=== PATIENT | male | born 1965 | race Caucasian/White ===

== ENCOUNTER 2018-02-18 08:12 | Observation (INO) | payer OTHER ==
--- NOTE | 2018-02-18 09:23 | ER ---
Nurse's Notes [facility] Name: Junito Lozano Age: 52 yrs Sex: Male : 1965 Arrival Date: 02/18/2018 Time: 08:15 Bed 15 Private MD: Unknown, Unknown Diagnosis: Abscess of anal and rectal regions;Fever, unspecified Presentation: 02/18 08:25 Presenting complaint: Patient states: pain to L buttock/anus since Sunday, now its red, ch hot and swollen, the pain is increasing. a fever every evening since Sunday, t max 101. could not sleep last night due to pain. Transition of care: patient was not received from another setting of care. Onset of symptoms was February 15, 2018. Risk Assessment: Do you want to hurt yourself or someone else? Patient reports no desire to harm self or others. Initial Sepsis Screen: Does the patient meet any 2 criteria? No. Patient's initial sepsis screen is negative. Does the patient have a suspected source of infection? No. Patient's initial sepsis screen is negative. Care prior to arrival: None. 08:25 Method Of Arrival: Ambulatory 08:25 Acuity: CASSI 3 ch Triage Assessment: 08:27 General: Appears in no apparent distress. uncomfortable, Behavior is calm, cooperative, ch appropriate for age. Pain: Complains of pain in buttocks and anus Pain currently is 9 out of 10 on a pain scale. Neuro: No deficits noted. Respiratory: No deficits noted. : No signs and/or symptoms were reported regarding the genitourinary system. Historical: - Allergies: 08:27 No Known Allergies; ch - Home Meds: 08:27 amlodipine-beslayte [Active]; aspirin 81 mg Oral chew 1 tab once daily [Active]; ch - PMHx: 08: Hypertension; - PSHx: 08:27 Gastric Bypass; - Immunization history:: Adult Immunizations up to date. - Social history:: Smoking status: Patient/guardian denies using tobacco, Patient uses alcohol, on a daily basis. admits to "couple of beers" a day. Patient/guardian denies using street drugs. - Ebola Screening: : Patient negative for fever greater than or equal to 101.5 degrees Fahrenheit, and additional compatible Ebola Virus Disease symptoms Patient denies exposure to infectious person Patient denies travel to an Ebola-affected area in the 21 days before illness onset No symptoms or risks identified at this time. Screenin:29 Abuse screen: Denies threats or abuse. Denies injuries from another. Nutritional screening: No deficits noted. Tuberculosis screening: No symptoms or risk factors identified. Fall Risk None identified. Assessment: 08:29 Reassessment: Patient appears in no apparent distress at this time. No changes from previously documented assessment. 08:56 General: Appears in no apparent distress. uncomfortable. Pain: Complains of pain in buttocks and anus. Derm: Skin is pink, warm \\T\\ dry. Abscess located on gluteal cleft is half dollar sized, is hot to touch, is red, is raised, pt has redness on the L side of the gluteal cleft. pt has large lump, firm, very tender next to L side of anus, tenderness extends to the middle of buttock. 09:48 Reassessment: Patient completed PO contrast. Notified CT via telephone. ae1 Vital Signs: 08:27 BP 159 / 99; Pulse 90; Resp 15; Temp 99(O); Pulse Ox 99% on R/A; Weight 129.73 kg; Height 6 ft. 1 in. (185.42 cm); Pain 9/10; 11:35 BP 132 / 88; Pulse 65; Resp 18; Temp 97.3; Pulse Ox 99% on R/A; Pain 2/10; ch 08:27 Body Mass Index 37.73 (129.73 kg, 185.42 cm) ED Course: 08:15 Patient arrived in ED. mr 08:15 Unknown, Unknown is Private Physician. mr 08:17 Jina Ghosh, RN is Primary Nurse. 08:26 Triage completed. ch 08:27 Arm band placed on right wrist. Patient placed in an exam room, on a stretcher, on pulse oximetry. 08:29 No apparent distress. Resting quietly. ch 08:29 Patient has correct armband on for positive identification. Placed in gown. Bed in low position. Call light in reach. Side rails up X 1. Adult w/ patient. Pulse ox on. NIBP on. Warm blanket given. 08:40 Tito Martins MD is Attending Physician. [facility] 09:22 Qamar Garcia MD is Hospitalizing Provider. nicolette 09:35 Missed attempt(s): 20 gauge in right antecubital area. Bleeding controlled, band aid ag applied, catheter tip intact. 09:35 Inserted saline lock: 20 gauge in left antecubital area, using aseptic technique. Blood ag collected. 09:37 X-ray completed. Portable x-ray completed in exam room. Patient tolerated procedure kp1 well. 09:37 Basic Metabolic Panel Sent. ag 09:37 BNP Sent. ag 09:37 CBC with Diff Sent. ag 09:37 Ckmb Sent. ag 09:37 CPK Sent. ag 09:37 LFT's Sent. ag 09:37 Troponin (emerg Dept Use Only) Sent. ag 09:38 Ptt, Activated Sent. ag 09:38 PT-INR Sent. ag 09:38 Magnesium Sent. ag 09:39 XRAY Chest (1 view) In Process Unspecified. EDMS 09:50 EKG done, by technical sales representative. reviewed by Tito Martins MD. dt2 11:00 No provider procedures requiring assistance completed. Patient admitted, IV remains in ch place. Administered Medications: 10:10 Drug: NS 0.9% 1000 ml Route: IV; Rate: 1 bolus; Site: left antecubital; ch 11:34 Follow up: IV Status: Completed infusion; IV Intake: 1000ml ch 10:10 Drug: Tylenol 1000 mg Route: PO; ch 11:33 Follow up: Response: No adverse reaction; Marked relief of symptoms ch 10:10 Drug: levofloxacin 750 mg Volume: 150 ml; Route: IVPB; Infused Over: 90 mins; Site: left antecubital; 11:33 Follow up: IV Status: Completed infusion; IV Intake: 150ml ch 10:38 Drug: Flagyl 500 mg Volume: 100 ml; Route: IVPB; Rate: 200 ml/hr; Infused Over: 30 ch mins; Site: left antecubital; 11:33 Follow up: IV Status: Completed infusion; IV Intake: 100ml ch 10:41 Drug: fentaNYL (PF) 50 mcg Route: IVP; Site: left antecubital; ch 11:34 Follow up: Response: No adverse reaction; Pain is decreased ch 10:42 Drug: NS 0.9% 1000 ml Route: IV; Rate: 125 ml/hr; Site: left antecubital; ch 11:34 Follow up: IV Status: Infusion continued upon admission ch 13:39 Drug: fentaNYL (PF) 25 mcg Route: IVP; Site: left antecubital; 19:41 Follow up: Response: No adverse reaction; Marked relief of symptoms ch 14:14 Not Given (Duplicate Order): fentaNYL (PF) 25 mcg IVP once dm5 Intake: 11:33 IV: 100ml; Total: 100ml. ch 11:33 IV: 150ml; Total: 250ml. ch 11:34 IV: 1000ml; Total: 1250ml. Outcome: 09:23 Decision to Hospitalize by Provider. [facility] 14:00 Admitted to OR accompanied by nurse, via stretcher, with chart, Other report given at bedside 14:00 Condition: stable 14:00 Instructed on the need for admit. 14:15 Patient left the ED. dm5 Signatures: Dispatcher [employer] EDMS Jina Ghosh, HEATHER ROMERO Maile Robertson RN RN dm5 Tito Martins MD MD cha Rivera, Maria mr Gallardo, Juan Ramon Arango RN RN juwan1 Darlin Warren kp1 Jenise Moseley2
--- NOTE | 2018-02-18 09:23 | EDPHYS ---
Physician Documentation [facility] Name: Junito Lozano Age: 52 yrs Sex: Male : 1965 Arrival Date: 02/18/2018 Time: 08:15 Bed 15 Private MD: Unknown, Unknown ED Physician Tito Martins HPI: 02/18 09:17 This 52 yrs old Male presents to ER via Ambulatory with complaints of nicolette Hemorrhoids, Fever. 09:17 The patient reports fever, that was measured at 101 degrees Fahrenheit. Onset: The nicolette symptoms/episode began/occurred 2 day(s) ago. Modifying factors: there are no obvious modifying factors. Associated signs and symptoms: Pertinent positives: chills, nausea. Severity of symptoms: At their worst the symptoms were moderate in the emergency department the symptoms are unchanged. Historical: - Allergies: 08:27 No Known Allergies; ch - Home Meds: 08:27 amlodipine-beslayte [Active]; aspirin 81 mg Oral chew 1 tab once daily [Active]; ch - PMHx: 08: Hypertension; ch - PSHx: 08:27 Gastric Bypass; ch - Immunization history:: Adult Immunizations up to date. - Social history:: Smoking status: Patient/guardian denies using tobacco, Patient uses alcohol, on a daily basis. admits to "couple of beers" a day. Patient/guardian denies using street drugs. - Ebola Screening: : Patient negative for fever greater than or equal to 101.5 degrees Fahrenheit, and additional compatible Ebola Virus Disease symptoms Patient denies exposure to infectious person Patient denies travel to an Ebola-affected area in the 21 days before illness onset No symptoms or risks identified at this time. ROS: 09:19 Constitutional: Negative for fever, chills, and weight loss, Eyes: Negative for injury, nicolette pain, redness, and discharge, ENT: Negative for injury, pain, and discharge, Neck: Negative for injury, pain, and swelling, Cardiovascular: Negative for chest pain, palpitations, and edema, Respiratory: Negative for shortness of breath, cough, wheezing, and pleuritic chest pain, Back: Negative for injury and pain, : Negative for injury, bleeding, discharge, and swelling, MS/Extremity: Negative for injury and deformity, Skin: Negative for injury, rash, and discoloration, Neuro: Negative for headache, weakness, numbness, tingling, and seizure, Psych: Negative for depression, anxiety, suicide ideation, homicidal ideation, and hallucinations, Allergy/Immunology: Negative for hives, rash, and allergies, Endocrine: Negative for neck swelling, polydipsia, polyuria, polyphagia, and marked weight changes, Hematologic/Lymphatic: Negative for swollen nodes, abnormal bleeding, and unusual bruising. 09:19 Abdomen/GI: Positive for abdominal pain, rectal pain, of the anus. Exam: 09:19 Head/Face: Normocephalic, atraumatic. Eyes: Pupils equal round and reactive to light, nicolette extra-ocular motions intact. Lids and lashes normal. Conjunctiva and sclera are non-icteric and not injected. Cornea within normal limits. Periorbital areas with no swelling, redness, or edema. ENT: Nares patent. No nasal discharge, no septal abnormalities noted. Tympanic membranes are normal and external auditory canals are clear. Oropharynx with no redness, swelling, or masses, exudates, or evidence of obstruction, uvula midline. Mucous membranes moist. Neck: Trachea midline, no thyromegaly or masses palpated, and no cervical lymphadenopathy. Supple, full range of motion without nuchal rigidity, or vertebral point tenderness. No Meningismus. Chest/axilla: Normal chest wall appearance and motion. Nontender with no deformity. No lesions are appreciated. Cardiovascular: Regular rate and rhythm with a normal S1 and S2. No gallops, murmurs, or rubs. Normal PMI, no JVD. No pulse deficits. Respiratory: Lungs have equal breath sounds bilaterally, clear to auscultation and percussion. No rales, rhonchi or wheezes noted. No increased work of breathing, no retractions or nasal flaring. Back: No spinal tenderness. No costovertebral tenderness. Full range of motion. Male : Normal genitalia with no discharge or lesions. Skin: Warm, dry with normal turgor. Normal color with no rashes, no lesions, and no evidence of cellulitis. MS/ Extremity: Pulses equal, no cyanosis. Neurovascular intact. Full, normal range of motion. Neuro: Awake and alert, GCS 15, oriented to person, place, time, and situation. Cranial nerves II-XII grossly intact. Motor strength 5/5 in all extremities. Sensory grossly intact. Cerebellar exam normal. Normal gait. Psych: Awake, alert, with orientation to person, place and time. Behavior, mood, and affect are within normal limits. 09:19 Abdomen/GI: Inspection: abdomen appears normal, Bowel sounds: normal, Palpation: abdomen is soft and non-tender, Rectal exam: swelling, that is moderate, tenderness, that is moderate. Vital Signs: 08:27 BP 159 / 99; Pulse 90; Resp 15; Temp 99(O); Pulse Ox 99% on R/A; Weight 129.73 kg; ch Height 6 ft. 1 in. (185.42 cm); Pain 9/10; 11:35 BP 132 / 88; Pulse 65; Resp 18; Temp 97.3; Pulse Ox 99% on R/A; Pain 2/10; ch 08:27 Body Mass Index 37.73 (129.73 kg, 185.42 cm) ch MDM: 08:40 Patient medically screened. [facility] 09:22 Data reviewed: vital signs, nurses notes, lab test result(s), EKG, radiologic studies, [facility] CT scan, plain films. 02/18 09:16 Order name: Basic Metabolic Panel [facility] 02/18 09:16 Order name: BNP [facility] 02/18 09:16 Order name: CBC with Diff; Complete Time: 10:31 [facility] 02/18 09:16 Order name: Ckmb [facility] 02/18 09:16 Order name: CPK [facility] 02/18 09:16 Order name: LFT's [facility] 02/18 09:16 Order name: Magnesium [facility] 02/18 09:16 Order name: PT-INR; Complete Time: 10:31 [facility] 02/18 09:16 Order name: Ptt, Activated; Complete Time: 10:31 [facility] 02/18 09:16 Order name: Troponin (emerg Dept Use Only); Complete Time: 10:31 [facility] 02/18 09:16 Order name: Lipase [facility] 02/18 09:45 Order name: Basic Metabolic Panel [facility] 02/18 09:45 Order name: Basic Metabolic Panel [facility] 02/18 09:45 Order name: CBC with Automated Diff [facility] 02/18 09:16 Order name: XRAY Chest (1 view); Complete Time: 10:31 [facility] 02/18 09:16 Order name: CT Abd/Pelvis - W/Contrast [facility] 02/18 09:45 Order name: CBC with Automated Diff EDMS 02/18 09:45 Order name: Lipase [facility] 02/18 09:45 Order name: Lipase ED[facility] 02/18 09:45 Order name: Liver (Hepatic) Function ED[facility] 02/18 09:45 Order name: Liver (Hepatic) Function EDMS 02/18 12:26 Order name: CT EDMS 02/18 09:16 Order name: EKG; Complete Time: 09:17 [facility] 02/18 09:16 Order name: Cardiac monitoring; Complete Time: 09:37 [facility] 02/18 09:16 Order name: EKG - Nurse/Tech; Complete Time: 09:44 [facility] 02/18 09:16 Order name: IV Saline Lock; Complete Time: 09:36 [facility] 02/18 09:16 Order name: Labs collected and sent; Complete Time: 09:36 [facility] 02/18 09:16 Order name: O2 Per Protocol; Complete Time: 09:36 [facility] 02/18 09:16 Order name: O2 Sat Monitoring; Complete Time: 09:36 [facility] 02/18 09:16 Order name: NPO; Complete Time: 09:44 [facility] 02/18 09:45 Order name: NPO; Complete Time: 11:34 EDMS Administered Medications: 10:10 Drug: NS 0.9% 1000 ml Route: IV; Rate: 1 bolus; Site: left antecubital; ch 11:34 Follow up: IV Status: Completed infusion; IV Intake: 1000ml ch 10:10 Drug: Tylenol 1000 mg Route: PO; ch 11:33 Follow up: Response: No adverse reaction; Marked relief of symptoms ch 10:10 Drug: levofloxacin 750 mg Volume: 150 ml; Route: IVPB; Infused Over: 90 mins; Site: ch left antecubital; 11:33 Follow up: IV Status: Completed infusion; IV Intake: 150ml ch 10:38 Drug: Flagyl 500 mg Volume: 100 ml; Route: IVPB; Rate: 200 ml/hr; Infused Over: 30 ch mins; Site: left antecubital; 11:33 Follow up: IV Status: Completed infusion; IV Intake: 100ml ch 10:41 Drug: fentaNYL (PF) 50 mcg Route: IVP; Site: left antecubital; ch 11:34 Follow up: Response: No adverse reaction; Pain is decreased ch 10:42 Drug: NS 0.9% 1000 ml Route: IV; Rate: 125 ml/hr; Site: left antecubital; ch 11:34 Follow up: IV Status: Infusion continued upon admission ch 13:39 Drug: fentaNYL (PF) 25 mcg Route: IVP; Site: left antecubital; ch 19:41 Follow up: Response: No adverse reaction; Marked relief of symptoms ch 14:14 Not Given (Duplicate Order): fentaNYL (PF) 25 mcg IVP once dm5 Disposition: 02/18/18 09:23 Hospitalization ordered by Qamar Garcia for Observation. Preliminary diagnosis are Abscess of anal and rectal regions, Fever, unspecified. - Bed requested for Telemetry/MedSurg (observation). - Status is Observation. dm5 - Condition is Stable. - Problem is new. - Symptoms are unchanged. UTI on Admission? No Signatures: Dispatcher [employer] EDMS Emely Gatica Christina, HEATHER ROMERO Maile Robertson RN RN Tito Coker MD MD cha Corrections: (The following items were deleted from the chart) 11:16 09:23 Hospitalization Ordered by Qamar Garcia MD for Observation. Preliminary bd diagnosis is Abscess of anal and rectal regions; Fever, unspecified. Bed requested for Telemetry/MedSurg (observation). Status is Observation. Condition is Stable. Problem is new. Symptoms are unchanged. UTI on Admission? No. nicolette 14:15 11:16 02/18/2018 09:23 Hospitalization Ordered by Qamar Garcia MD for Observation. dm5 Preliminary diagnosis is Abscess of anal and rectal regions; Fever, unspecified. Bed requested for Telemetry/MedSurg (observation). Status is Observation. Condition is Stable. Problem is new. Symptoms are unchanged. UTI on Admission? No. bd
[2018-02-18] MEDS ORDERED: ACETAMINOPHEN 500 MG TAB PO PRN (09:42)
[2018-02-18] MEDS ORDERED: MORPHINE 4 MG/ML SYR IV PRN ×2 (09:42→15:57)
[2018-02-18] MEDS ORDERED: ONDANSETRON 4 MG/2 ML VIAL IV PRN ×2 (09:42→15:43)
--- NOTE | 2018-02-18 09:48 | EKG ---
Test Date: 2018-02-18 Test Time: 09:44:02 Dressmaker Or Tailor: NATHAN MEASUREMENT RESULTS: Intervals: Rate: 85 MI: 188 QRSD: 94 QT: 350 QTc: 416 Dowell: P: 29 MI: 188 QRS: 28 T: 30 INTERPRETIVE STATEMENTS: Normal sinus rhythm Normal ECG Compared to ECG 07/29/2007 08:43:32 No significant changes Electronically Signed On 02-18-18 09:47:17 CDT by Renard Cali
[2018-02-18] MEDS ORDERED: FENTANYL CITR 100 MCG/2 ML ONE ×4 (09:50→14:50)
[2018-02-18] MEDS ORDERED: ONDANSETRON 4 MG/2 ML VIAL ONE (09:51)
[2018-02-18] MEDS ORDERED: ACETAMINOPHEN 500 MG TAB ONE (09:51)
[2018-02-18] MEDS ORDERED: NA CHLORIDE 0.9% 2,000 ML ONE (09:51)
[2018-02-18] MEDS ORDERED: Levofloxacin 750mg IV 750 MG/150 ML BAG IV ONE (09:51)
[2018-02-18] MEDS ORDERED: METRONIDAZOLE 500mg IVPB 500 MG/100 ML BAG IV ONE (09:51)
[2018-02-18] MEDS ORDERED: Levofloxacin 750mg IV 750 MG/150 ML BAG IV SCH (10:00)
[2018-02-18] MEDS: NA CHLORIDE 0.9% 1,000 ML IV SCH ×2 (10:00→17:02)
[2018-02-18 10:01] LABS: Absolute Lymphocytes (CBC) 0.6 K/uL (0.7-4.9); Absolute Monocytes 1.2 K/uL (0.1-1.3); Absolute Neutrophil 6.7 K/uL (1.8-8.0); Basophils % 0.4 % (0-1.3); Eosinophils % 0.5 % (0-4.4); Hematocrit 40.4 % (39.6-49.0); MCH 31.8 pg (27.0-35.0); MCV 91.9 fL (80-100); Monocytes % 13.6 % (3.3-12.3)
--- NOTE | 2018-02-18 10:05 | RAD REPORT ---
EXAM DESCRIPTION: RAD - Chest Single View - 02/18/2018 9:44 am CLINICAL HISTORY: Cough, chest discomfort, preop chest film COMPARISON: None. TECHNIQUE: AP portable chest image was obtained 0936 hours . FINDINGS: Lungs are clear. Heart and vasculature are normal. No measurable pleural effusion and no p neumothorax. No gross bony abnormality seen. No acute aortic findings suspected. IMPRESSION: No acute cardiopulmonary process.
[2018-02-18 10:10] LABS: Protime INR 1.15
[2018-02-18 10:23] LABS: Bicarbonate 28 mEq/L (21-31); Glucose Level 110 mg/dL (65-120); Lipase 25 U/L (22-51); Potassium 3.6 mEq/L (3.6-5.0); Sodium Level 139 mEq/L (135-145)
[2018-02-18 10:29] LABS: ALT/SGPT 24 IU/L (10-60); AST/SGOT 19 IU/L (10-42); Albumin 3.5 g/dL (3.2-5.5); Alkaline Phosphatase 79 IU/L (42-121); BUN Blood Urea Nitrogen 11 mg/dL (6-20); Bilirubin Direct 0.2 mg/dL (0-0.2); Bilirubin Total 0.8 mg/dL (0.3-1.2); Creatine Phosphokinase 141 IU/L (22-269); Magnesium 2.2 mg/dL (1.8-2.5)
[2018-02-18 10:31] LABS: CKMB Creatine Kinase MB 6.5 ng/ml (0.3-4.0)
[2018-02-18] MEDS ORDERED: METRONIDAZOLE 500mg IVPB 500 MG/100 ML BAG IV SCH (12:00)
--- NOTE | 2018-02-18 12:25 | RAD REPORT ---
EXAM DESCRIPTION: CT - Abdomen Pelvis W Contrast - 02/18/2018 11:59 am CLINICAL HISTORY: Pelvic pain, left buttocks and perianal pain COMPARISON: None. TECHNIQUE: Biphasic, helical CT imaging of the abdomen and pelvis was performed following 100 ml non -ionic IV contrast. Oral contrast was given. All CT scans are performed using dose optimization technique as appropriate and may include automated exposure control or mA/KV adjustment according to patient size. FINDINGS: No suspicious findings in the lung bases. The liver, spleen, and pancreas show no suspicious findings. Gallbladder and biliary tree are also wi thout suspicious finding. Symmetric renal function is seen with no hydronephrosis or suspicious renal mass. No pyelonephritis o r acute renal parenchymal process. No urinary bladder abnormality. No dilated bowel loops or bowel wall thickening. No intraperitoneal free air, free fluid or pneumato sis. Small bilateral fat filled inguinal hernias are present. No hernia, mass or bulky lymphadenopat hy. No adrenal abnormality. Postsurgical changes are noted the stomach. No acute gastric finding. Small bowel shows no suspicious finding. From cecum through distal rectum no acute finding is seen. A 4 centimeter x 3 centimeter perirectal abscess is present posterior and posterolateral location. IMPRESSION: Approximately 4 x 3 centimeter posterior and left posterior perirectal/ perianal abscess .
[2018-02-18] MEDS ORDERED: BUPIVACAINE 0.5% Inj,MDV 50 mL VIAL ONE (13:53)
[2018-02-18] MEDS ORDERED: PROPOFOL 200 MG/20 ML VIAL IV ONE (14:36)
[2018-02-18] MEDS ORDERED: Morphine 2 MG/2 ML SYR IV PRN (14:38)
--- NOTE | 2018-02-18 14:39 | P.HP ---
Date of Service: 02/18/18 PC: This 52-year-old male presents to the emergency room with perirectal pain for diagnosis and treatment. HPC: Patient is noticed pain and discomfort on the left side of his buttocks just lateral to the anus this last . Has noticed increasing pain and pressure in this area. Got to the point where he could no longer stand it today and came in for treatment. PMH: Hypertension PSHx: Gastric bypass SOC: No known allergy (medications were reviewed) SYS REVIEW: No cough, wheeze, shortness of breath. No chest pain or palpitations. Had a normal colonoscopy done 6 months to a year ago. Denies any urinary complaint O/E awake alert on come HEENT: Not jaundice Chest: Chest movement equal bile out ABD: Soft Rectal: Patient has pain and tenderness on the left side of the buttock just at the area of the anus LOCO: Intact DATA: The white cell count IMPRESSION: Perirectal abscess PLAN: I will take him to the operating room for a incision, drainage, sharp debridement of this perirectal abscess. The risks of this procedure have been discussed. The possibility of bleeding, infection, recurrence were outlined. He understands and wants to proceed.
[2018-02-18] MEDS ORDERED: DEXAMETHASONE 10 MG/ML VIAL ONE (14:48)
[2018-02-18] MEDS ORDERED: ONDANSETRON HCL 40 MG/20 ML VIAL ONE (14:48)
[2018-02-18] MEDS ORDERED: KETOROLAC 30 MG/ML INJ ONE (14:48)
[2018-02-18] MEDS ORDERED: MEPERIDINE HCL 50 MG/ML AMP ONE (15:24)
--- NOTE | 2018-02-18 15:39 | P.OP ---
Preoperative diagnosis: Perirectal abscess Postoperative diagnosis: The same (left side) Primary procedure: Incision, drainage, sharp debridement of perirectal abscess Anesthesia: General Estimated blood loss: S. in 10 cc Operative Technique: The patient brought the operating room and placed supine on the table. After the induction of adequate general anesthesia, the patient was placed in lithotomy. The area of the perineum was now prepped with a Betadine solution, and draped in usual aseptic manner. Just lateral to the anus on the left side there was a hard for mass. There appear to be an opening on the skin the connected to this mass area. There was no drainage from it. We injected 0.25% Marcaine in this area. An 11 blade was now you used to make a linear skin incision. This brought down through the skin and subcutaneous tissue. Using a hemostat we post to this large abscess cavity. It was drained with using the suctioned and irrigated until the area was clear. Likely has an aerobic and anaerobic cultures of this were taken. Necrotic debris was sharply excised using a 11 blade. At this point a 2. Nylon was placed into the wound and brought out more laterally to keep the area open and draining during the postoperative period. At the end of the procedure the patient was stable when sent to the recovery room. Needle sponge instrument count were correct. Complications: None Drain(s): Other (# 2 nylon) Transferred to: Recovery Room Condition: Good
[2018-02-18] MEDS ORDERED: HYDROCODONE/APAP 7.5/325 MG TAB PO PRN (15:43)
[2018-02-18] MEDS: METRONIDAZOLE 500mg IVPB 500 MG/100 ML BAG IV SCH (17:02)
[2018-02-19] MEDS: METRONIDAZOLE 500mg IVPB 500 MG/100 ML BAG IV SCH ×4 (00:14→13:24)
[2018-02-19] MEDS: NA CHLORIDE 0.9% 1,000 ML IV SCH ×2 (02:39→10:00)
[2018-02-19] MEDS ORDERED: Morphine 2 MG/2 ML SYR IV PRN (07:34)
[2018-02-19] MEDS ORDERED: Levofloxacin 750mg IV 750 MG/150 ML BAG IV SCH (10:00)
== END 2018-02-19 14:54 | disposition home or self-care (01) ==
LOC: ER 08:12 → ERHOLD 09:41 → 2ND 15:22
PROVIDERS: ADMIT Surgery; ATTEND Surgery
PROC: 0D9P3ZX Drainage of Rectum, Percutaneous Approach, Diagnostic (ICD-10-PCS; principal; 2018-02-18 14:00)
DX: K61.1 Rectal abscess (principal); I10 Essential (primary) hypertension; Z98.84 Bariatric surgery status
CPT/HCPCS: 36415; 71045; 74177; 80048; 80076; 82550; 82553; 83690; 83735; 83880; 84484; 85025; 85610; 85730; 93005; 96361; 96365; 96368; 96375; 99285; G0378; J1100; J2175; J2405; J3010; J7030; Q9967

== ENCOUNTER 2024-08-22 21:10 | Emergency (ER) | payer OTHER ==
[2024-08-22] MEDS ORDERED: methocarbamoL 750 MG TAB ONE (21:59)
[2024-08-22] MEDS ORDERED: dexAMETHasone 10 MG/ML VIAL ONE (21:59)
[2024-08-22] MEDS ORDERED: KETOROLAC 30 MG/ML INJ ONE (21:59)
[2024-08-22] MEDS ORDERED: HYDROCODONE/APAP 5/325 MG TAB ONE ×2 (22:00→22:01)
--- NOTE | 2024-08-22 22:32 | RAD REPORT ---
Exam:Knee Right 3 View HISTORY: Right knee pain FINDINGS: No fracture or dislocation seen [id number] joint effusion suspected. Moderate osteoarthritis medial compartment. Mild to moderate osteoarthritis lateral compartment. Schaefer llofemoral compartment also involves. Joint space narrowing and osteophytes are resonance Mild to moderate lateral subluxation tibia on the femur.
[2024-08-22 22:52] LABS: Anion Gap 11.8 mEq/L (5.0-15.0); Potassium 3.8 mEq/L (3.5-5.1)
--- NOTE | 2024-08-23 00:08 | EDPHYS ---
Physician Documentation [facility] Name: Junito Lozano Age: 59 yrs Sex: Male : 1965 Arrival Date: 08/22/2024 Time: 21:10 Bed 19 Private MD: ED Physician Alvarez White HPI: 08/22 21:27 This 59 yrs old Male presents to ER via Ambulatory with complaints of Knee sp4 Pain. 08/23 19:29 59-year-old male presents with complaint of the Right knee pain. Patient states his sp4 Right knee pain has worsened after he sustained knee sprain earlier in the week patient has history of degenerative arthritis of bilateral knees and history of right knee effusion with previous drainage. Historical: - PMHx: 08/22 21:20 Hypertension; Arthritis; me1 - PSHx: 21:20 gastric bypass; rotator cuff surgery; me1 - Immunization history:: Adult Immunizations up to date. - Infectious Disease History:: Denies. - Social history:: Smoking status: Patient denies any tobacco usage or history of. - Family history:: not pertinent. ROS: 08/23 19:30 Constitutional: Negative for fever, chills, and weight loss, positive right knee pain sp4 and swelling Eyes: Negative for injury, pain, redness, and discharge, All other systems are negative, Exam: 19:30 Constitutional: This is a well developed, well nourished patient who is awake, alert, sp4 and in no acute distress. Head/Face: Normocephalic, atraumatic. Eyes: Pupils equal round and reactive to light, extra-ocular motions intact. Lids and lashes normal. Conjunctiva and sclera are not injected. Cornea within normal limits. Periorbital areas with no swelling, redness, or edema. ENT: Nares patent. No nasal discharge, no septal abnormalities noted. Tympanic membranes are normal and external auditory canals are clear. Oropharynx with no redness, swelling, or masses, exudates, or evidence of obstruction, uvula midline. Mucous membranes moist. Neck: Trachea midline, no thyromegaly or masses palpated, and no cervical lymphadenopathy. Supple, full range of motion without nuchal rigidity, or vertebral point tenderness. Chest/axilla: Normal chest wall appearance and motion. Nontender with no deformity. No lesions are appreciated. Cardiovascular: Regular rate and rhythm with a normal S1 and S2. No gallops, murmurs, or rubs. Normal PMI, no JVD. No pulse deficits. Respiratory: Lungs have equal breath sounds bilaterally, clear to auscultation and percussion. No rales, rhonchi or wheezes noted. No increased work of breathing, no retractions or nasal flaring. Abdomen/GI: Soft, with normal bowel sounds. No distension or tympany. No guarding or rebound. No evidence of tenderness throughout. Back: No spinal tenderness. No costovertebral tenderness. Skin: Warm, dry with normal turgor. Normal color with no rashes, no lesions, and no evidence of cellulitis. MS/ Extremity: Pulses equal, no cyanosis. Neurovascular intact. Full, normal range of motion. Positive right knee pain and swelling Neuro: Awake and alert, GCS 15, oriented to person, place, time, and situation. Cranial nerves II-XII grossly intact. Motor strength 5/5 in all extremities. Sensory grossly intact. Psych: Awake, alert, with orientation to person, place and time. Behavior, mood, and affect are within normal limits Vital Signs: 08/22 21:18 BP 130 / 85; Pulse 82; Resp 18; Temp 97.9; Pulse Ox 97% ; Weight 129.27 kg; Height 6 me1 ft. 1 in. ; Pain 9/10; 22:14 BP 130 / 85; Pulse 82; Resp 18; Temp 98(O); Pulse Ox 98% ; Pain 10/10; bp 23:53 BP 144 / 93; Pulse 83; Resp 17; Pulse Ox 96% on R/A; Pain 3/10; rg5 21:18 Body Mass Index 37.60 (129.27 kg, 185.42 cm) me1 21:18 Pain Scale: Adult me1 22:14 Pain Scale: Adult bp 23:53 Pain Scale: Adult rg5 Kenzie Coma Score: 08/23 19:30 Eye Response: spontaneous(4). Motor Response: obeys commands(6). Verbal Response: sp4 oriented(5). Total: 15. MDM: 08/22 21:32 Medical Screening Exam initiated sp4 08/23 19:30 Differential diagnosis: dislocation, closed fracture, contusion, abrasion, tendonitis. sp4 Data reviewed: vital signs, nurses notes, radiologic studies, plain films. ED course: HISTORY: Right knee pain FINDINGS: No fracture or dislocation seen Mclez-yb-jfljwzmw joint effusion suspected. Moderate osteoarthritis medial compartment. Mild to moderate osteoarthritis lateral compartment. Patellofemoral compartment also involves. Joint space narrowing and osteophytes are resonance Mild to moderate lateral subluxation tibia on the femur. . 19:33 ED course: No weight bearing advised to right lower extremity, patient states he has sp4 his own knee immobilizer at home and crutches as well. Will advise follow-up with orthopedist for further knee management. . 08/22 21:55 Order name: BMP; Complete Time: 23:56 sp4 08/22 21:55 Order name: Knee Right 3 View XRAY; Complete Time: 23:56 sp4 Administered Medications: 08/22 22:00 Drug: HYDROcodone-acetaminophen PO 5 mg-325 mg 2 tabs PO once Route: PO; bp 23:52 Follow up: Response: No adverse reaction; Pain is decreased rg5 22:00 Drug: Methocarbamol PO 1500 mg PO once Route: PO; bp 23:52 Follow up: Response: No adverse reaction; Pain is decreased rg5 22:14 Drug: Dexamethasone IM 10 mg IM once Route: IM; Site: right gluteus; bp 23:53 Follow up: Response: No adverse reaction; Pain is decreased rg5 22:14 Drug: Ketorolac IM 60 mg IM once Route: IM; Site: right gluteus; bp 23:52 Follow up: Response: Pain is decreased rg5 Disposition Summary: 08/23/24 00:07 Discharge Ordered Notes: NO weight bearing to Right leg until cleared by Orthopedist Location: Home sp4 Problem: new sp4 Symptoms: have improved sp4 Condition: Stable sp4 Diagnosis - Pain in right knee sp4 - Acute Right knee sprain, chronic degenerative right knee arthritis with mild sp4 subluxation Followup: sp4 - With: Private Physician - When: 5 - 6 days - Reason: Recheck today's complaints Discharge Instructions: - Discharge Summary Sheet sp4 - Arthritis, Qyli-tz-Erei sp4 Forms: - Patient Portal Instructions sp4 Prescriptions: - acetaminophen-codeine 300-60 mg Oral tablet - take 1 tablet ORAL route every 8 hours PRN pain; 20 tablet; Refills: 0, Product sp4 Selection Permitted - naproxen 500 mg Oral tablet - take 1 tablet ORAL route every 12 hours PRN pain; 50 tablet; Refills: 0, sp4 Product Selection Permitted - methocarbamol 750 mg Oral tablet - take 2 tablet ORAL route every 8 hours for 3 days PRN knee pain; 60 tablet; sp4 Refills: 0, Product Selection Permitted Signatures: Dispatcher [employer] Juanjo Colmenares RN RN Alvarez White MD MD sp4 Myriam Sethi RN RN me1 Raymond Rodriguez RN rg5 Corrections: (The following items were deleted from the chart) 08/23 19:31 19:29 59-year-old male presents with complaint of the knee pain. Patient states his sp4 knee pain has worsened after he sustained knee sprain earlier in the week. sp4
--- NOTE | 2024-08-23 00:08 | ER ---
Nurse's Notes [facility] Name: Junito Lozano Age: 59 yrs Sex: Male : 1965 Arrival Date: 08/22/2024 Time: 21:10 Bed 19 Private MD: Diagnosis: Pain in right knee;Acute Right knee sprain, chronic degenerative right knee arthritis with mild subluxation Presentation: 08/22 21:18 Chief complaint: Patient states: right knee pain after working in the yard. Patient has me1 arthritis in knees and sees Dr Hall at [facility] for steroid shots and to drain fluid off the knees. Pain became unbearable this evening. Coronavirus screen: Vaccine status: Patient reports receiving the 2nd dose of the covid vaccine. Ebola Screen: No symptoms or risks identified at this time. Initial Sepsis Screen: Does the patient meet any 2 criteria? No. Patient's initial sepsis screen is negative. Does the patient have a suspected source of infection? No. Patient's initial sepsis screen is negative. Risk Assessment: Do you want to hurt yourself or someone else? Patient reports no desire to harm self or others. Onset of symptoms was August 22, 2024 at 13:00. 21:18 Method Of Arrival: Ambulatory or1 21:18 Acuity: CASSI 4 me1 Triage Assessment: 21:25 General: Appears uncomfortable, well groomed, well developed, well nourished, Behavior me1 is calm, cooperative, appropriate for age. Pain: Complains of pain in right knee Pain does not radiate. Pain currently is 9 out of 10 on a pain scale. Quality of pain is described as aching, Pain began gradually, Is continuous. EENT: No signs and/or symptoms were reported regarding the EENT system. Neuro: Level of Consciousness is awake, alert, obeys commands, Oriented to person, place, time, situation, Appropriate for age. Cardiovascular: Patient's skin is warm and dry. Respiratory: Airway is patent Trachea midline Respiratory effort is even, unlabored, Respiratory pattern is regular, symmetrical. GI: No signs and/or symptoms were reported involving the gastrointestinal system. : No signs and/or symptoms were reported regarding the genitourinary system. Derm: Skin is intact, is healthy with good turgor, Skin is pink, warm \T\ dry. Musculoskeletal: Range of motion: intact in all extremities, Swelling present in right knee Reports pain in right knee. Historical: - PMHx: 21:20 Hypertension; Arthritis; me1 - PSHx: 21:20 gastric bypass; rotator cuff surgery; me1 - Immunization history:: Adult Immunizations up to date. - Infectious Disease History:: Denies. - Social history:: Smoking status: Patient denies any tobacco usage or history of. - Family history:: not pertinent. Screenin:15 [facility] ED Fall Risk Assessment (Adult) History of falling in the last 3 months, bp including since admission No falls in past 3 months (0 pts) Confusion or Disorientation No (0 pts) Intoxicated or Sedated No (0 pts) Impaired Gait No (0 pts) Mobility Assist Device Used No (0 pt) Altered Elimination No (0 pt) Score/Fall Risk Level 0 - 2 = Low Risk Oriented to surroundings, Maintained a safe environment, Hourly rounding (assess needs \T\ fall precautionary measures) done. Abuse screen: Denies threats or abuse. Nutritional screening: No deficits noted. Tuberculosis screening: No symptoms or risk factors identified. Assessment: 22:15 General: Appears in no apparent distress. Behavior is calm. Pain: Complains of pain in bp right knee Pain currently is 10 out of 10 on a pain scale. Quality of pain is described as aching. Neuro: Level of Consciousness is awake, alert, Oriented to person, place, time. Cardiovascular: Denies chest pain, Patient's skin is warm and dry. Rhythm is regular. Respiratory: Airway is patent Trachea midline Respiratory effort is even, unlabored, Respiratory pattern is regular, Breath sounds are clear. GI: Abdomen is round obese. : No signs and/or symptoms were reported regarding the genitourinary system. EENT: No deficits noted. Derm: Skin is intact, Skin is dry, Skin is normal, Skin temperature is warm. Musculoskeletal: Circulation, motion, and sensation intact. Range of motion: intact in all extremities. 23:53 Reassessment: Patient and/or family updated on plan of care and expected duration. Pain rg5 level reassessed. Patient is alert, oriented x 3, equal unlabored respirations, skin warm/dry/pink. Patient states feeling better. Patient states symptoms have improved. Vital Signs: 21:18 BP 130 / 85; Pulse 82; Resp 18; Temp 97.9; Pulse Ox 97% ; Weight 129.27 kg; Height 6 me1 ft. 1 in. ; Pain 9/10; 22:14 BP 130 / 85; Pulse 82; Resp 18; Temp 98(O); Pulse Ox 98% ; Pain 10/10; bp 23:53 BP 144 / 93; Pulse 83; Resp 17; Pulse Ox 96% on R/A; Pain 3/10; rg5 21:18 Body Mass Index 37.60 (129.27 kg, 185.42 cm) me1 21:18 Pain Scale: Adult me1 22:14 Pain Scale: Adult bp 23:53 Pain Scale: Adult rg5 Kenzie Coma Score: 08/23 19:30 Eye Response: spontaneous(4). Motor Response: obeys commands(6). Verbal Response: sp4 oriented(5). Total: 15. ED Course: 08/22 21:14 Patient arrived in ED. gm2 21:20 Triage completed. me1 21:20 Juanjo Gonzalez, HEATHER is Primary Nurse. bp 21:20 Arm band placed on Patient placed in an exam room. me1 21:27 Alvarez White MD is Attending Physician. sp4 22:10 BMP Sent. af3 22:15 Patient has correct armband on for positive identification. Call light in reach. Side bp rails up X 1. Door closed. Noise minimized. Warm blanket given. 22:15 No provider procedures requiring assistance completed. Inserted saline lock: 20 gauge bp in left antecubital area, using aseptic technique. Blood collected. Flushed with 10 mL NS. 22:21 Knee Right 3 View XRAY In Process Unspecified. EDMS 08/23 00:26 Provided Education on: post er care. rg5 00:26 IV discontinued, bleeding controlled, No redness/swelling at site. Pressure dressing rg5 applied. Administered Medications: 08/22 22:00 Drug: HYDROcodone-acetaminophen PO 5 mg-325 mg 2 tabs PO once Route: PO; bp 23:52 Follow up: Response: No adverse reaction; Pain is decreased rg5 22:00 Drug: Methocarbamol PO 1500 mg PO once Route: PO; bp 23:52 Follow up: Response: No adverse reaction; Pain is decreased rg5 22:14 Drug: Dexamethasone IM 10 mg IM once Route: IM; Site: right gluteus; bp 23:53 Follow up: Response: No adverse reaction; Pain is decreased rg5 22:14 Drug: Ketorolac IM 60 mg IM once Route: IM; Site: right gluteus; bp 23:52 Follow up: Response: Pain is decreased rg5 Medication: 22:15 VIS not applicable for this client. bp Outcome: 08/23 00:07 Discharge ordered by . sp4 00:26 Discharged to home via wheelchair, rg5 00:26 Condition: stable 00:26 Discharge instructions given to patient, family, Instructed on discharge instructions, follow up and referral plans. Demonstrated understanding of instructions, follow-up care, medications, Prescriptions given X 3, 00:27 Patient left the ED. rg5 Signatures: Dispatcher [employer] Juanjo Colmenares, RN RN Alvarez Pickens MD MD sp4 Myriam Sethi RN RN me1 Renetta Bellamy 2 Raymond Rodriguez RN RN rg5 Sofía Roger [facility]
[2024-08-23 03:21] VITALS: TEMP 98
[2024-08-23 03:23] VITALS: BP 144/93; O2SAT 96
== END 2024-08-23 00:27 | disposition home or self-care (01) ==
LOC: ER 21:10
DX: S83.91XA Sprain of unspecified site of right knee, initial encounter (principal); M17.11 Unilateral primary osteoarthritis, right knee; S83.101A Unspecified subluxation of right knee, initial encounter
CPT/HCPCS: 80048; 36415; 73562; 96372; 99284; J1100